=== PATIENT | male | born 1970 | race Caucasian/White ===

== ENCOUNTER 2019-02-17 13:00 | Emergency (ER) | payer OTHER ==
[~2019-02-17] VITALS: Ht 188 cm; Wt 115.6 kg
[2019-02-17] MEDS ORDERED: SODIUM CHLORIDE FLUSH 10ML SYR IVF ONE (13:30)
[2019-02-17 13:38] LABS: MEAN CORPUSCULAR HEMOGLOBIN 30.6 pg (27.5-34.5); MEAN CORPUSCULAR HGB CONC 33.1 g/dL (33.2-36.2); MEAN CORPUSCULAR VOLUME 92.5 fL (81-97); MEAN PLATELET VOLUME 7.8 fL (7.4-10.4); PLATELET COUNT 245 x10^3/uL (130-400); RED BLOOD COUNT 4.54 x10^6/uL (4.38-5.82); RED CELL DISTRIBUTION WIDTH 12.2 % (9.4-14.8)
[2019-02-17 13:47] LABS: ANION GAP 8 mmol/L (5-15); CALCIUM 9.6 mg/dL (8.5-10.1); CHLORIDE 103 mmol/L (98-107); CREATININE 0.87 mg/dL (0.7-1.3)
--- NOTE | 2019-02-17 13:49 | NUR ---
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
[2019-02-17 13:52] LABS: BASOPHILS # (AUTO) 0.05 x10^3/uL (0-0.1); BASOPHILS % (AUTO) 0 % (0-1); EOSINOPHILS # (AUTO) 0.01 x10^3/uL (0-0.4); EOSINOPHILS % (AUTO) 0 % (1-7); LYMPHOCYTES # (AUTO) 0.69 x10^3/uL (1-3.4); LYMPHOCYTES % (AUTO) 6 % (22-44); MD SCAN; MONOCYTES # (AUTO) 0.98 x10^3/uL (0.2-0.8); MONOCYTES % (AUTO) 8 % (2-9); NEUTROPHILS # (AUTO) 10.58 x10^3/uL (1.8-6.8); NEUTROPHILS % (AUTO) 86 % (42-75)
[2019-02-17] MEDS ORDERED: KETOROLAC 30 MG/1 ML ONE (14:18)
[2019-02-17] MEDS ORDERED: MECLIZINE CHEWABLE 25 MG TAB ONE (14:18)
--- NOTE | 2019-02-17 14:25 | NUR ---
FIRST CONTACT WITH PT. PT LAYING IN GURNEY. PT APPEARS IN PAIN, RESTLESS. CO BYRNE X TODAY FOLLOWING WORSENING SINUS PRESSURE X SEVERAL DAYS. +PRODUCTIVE COUGH/CHANGES IN VISION. DENIES SENSITIVITY TO LIGHT OR SOUND. PT A&OX4, SPEECH CLEAR, FACE SYMMETRICAL. +STRENGTH X 4. BP/SPO2/ECG MONITORING IN PLACE. NSR ON MONITOR. PT MEDICATED PER EMAR FOR PAIN. PT AND SO UPDATED TO POC (CT/RESULTS/RECHECK) AND DEMONSTRATES UNDERSTANDING. LIGHTS DIMMED FOR COMFORT.
[2019-02-17] MEDS ORDERED: MECLIZINE CHEWABLE 25 MG TAB PO ONE (14:30)
[2019-02-17] MEDS ORDERED: KETOROLAC 60 MG/2 ML IM ONE (14:30)
--- NOTE | 2019-02-17 15:10 | NUR ---
PT REPORTS MILD IMPROVEMENT IN PAIN WITH MEDICATIONS.PT AMBULATED STEADILY TO BATHROOM WITH RN
--- NOTE | 2019-02-17 15:39 | NUR ---
DC EDUCATION PROVIDED, PT DEMONSTRATES UNDERSTANDING. PT AMBULATED STEADILY TO DC WITH RN AND SO
[2019-02-17 15:40] VITALS: BP 168/60
== END 2019-02-17 15:42 | disposition home or self-care (01) ==
LOC: ED 15:30
DX: J01.90 Acute sinusitis, unspecified (principal); H66.003 Acute suppurative otitis media without spontaneous rupture of ear drum, bilateral; R42 Dizziness and giddiness; R51 Headache
CPT/HCPCS: 36415; 70450; 80048; 82040; 85025; 93005; 96372; 99284; J1885